=== PATIENT | female | born 1950 | race Asian ===

== ENCOUNTER 2023-07-01 10:54 | Emergency (ER) | payer OTHER ==
[~2023-07-01] VITALS: Ht 154.9 cm; Wt 45.3 kg
[2023-07-01] MEDS ORDERED: LABETALOL HCL 5 MG/ML 20 ML VIAL IVP PRN ×2 (11:00)
[2023-07-01] MEDS ORDERED: OXYGEN THERAPY IH SCH (11:00)
[2023-07-01 11:31] LABS: BASOPHILS % (AUTO) 0.3 % (0.0-2.0); EOSINOPHILS % (AUTO) 0.1 % (1.0-6.0); HEMATOCRIT 46.1 % (36-46); HEMOGLOBIN 15.6 g/dL (12.0-16.0); LYMPHOCYTES # (AUTO) 0.7 K/uL (1.0-4.8); LYMPHOCYTES % (AUTO) 7.4 % (22.0-44.0); MEAN CORPUSCULAR HEMOGLOBIN 32.3 pg (26.0-34.0); MEAN CORPUSCULAR HGB CONC 33.9 G/dL (31.0-37.0); MEAN CORPUSCULAR VOLUME 95 fL (80-100); MONOCYTES # (AUTO) 0.5 K/uL (0.1-1.0); MONOCYTES % (AUTO) 5.4 % (2.0-9.0); PLATELET COUNT (AUTO) 176 K/uL (150-450); RED BLOOD CELL COUNT(AUTO) 4.84 MIL/uL (4.00-5.20); RED CELL DISTRIBUTION WIDTH 14.2 % (11.5-14.5); WHITE BLOOD COUNT (AUTO) 9.2 K/uL (4.5-11.0)
[2023-07-01] MEDS ORDERED: ROCURONIUM BROMIDE 10 MG/ML 5 ML VIAL ONE (11:31)
[2023-07-01 11:36] LABS: NEUTROPHILS % (AUTO) 86.8 % (40.0-70.0)
[2023-07-01 11:42] VITALS: PULSE 66; RESP 20; O2SAT 99
[2023-07-01 11:44] VITALS: TEMP 97.9
[2023-07-01] MEDS ORDERED: ETOMIDATE 2 MG/ML 10 ML VIAL IVP ONE (12:00)
[2023-07-01 12:02] VITALS: O2SAT 98
[2023-07-01 12:05] LABS: CALCIUM, TOTAL 9.1 mg/dL (8.8-10.5); CREATININE 0.95 mg/dL (0.60-1.30); POTASSIUM 3.6 mmol/L (3.5-5.1)
[2023-07-01 12:10] LABS: INR 1.7 (0.9-1.1); PROTHROMBIN TIME 17.3 SEC (9.4-11.6)
[2023-07-01 12:12] VITALS: BP 101/74; PULSE 87; RESP 20
[2023-07-01 12:13] LABS: ALBUMIN 3.7 g/dL (3.4-5.0); CHOL/HDL RATIO 2.2 (3.9-5.7); DIGOXIN 0.82 ng/mL (0.90-2.00)
[2023-07-01 12:17] LABS: TROPONIN I-HIGH SENSITIVITY 601 ng/L (<51)
[2023-07-01 12:23] LABS: ABG BASE EXCESS 2.6 mmol/L (-2.0-3.0); ABG CARBOXYHEMOGLOBIN 1.5 % (0.0-1.5); ABG HCO3 27.6 mmol/L (22.0-26.0); ABG METHEMOGLOBIN 0.7 % (0.0-1.5); ABG OXYGEN CONTENT 23.4 mL/dL (15.0-23.0); ABG OXYGEN SATURATION 99.7 % (95.0-98.0); ABG OXYHEMOGLOBIN 97.5 % (94.0-100.0); ABG PCO2 31 mmHg (35-45); ABG PH 7.534 (7.35-7.450); ABG TOTAL HEMOGLOBIN 16.2 G/dL (12.0-18.0); PO2, ARTERIAL BG 463.6 mmHg (75.0-83.0); SOURCE, BLOOD GAS ARTERIAL; TEMPERATURE, FAHRENHEIT, BG 97.9 FAHREN (96.0-98.6)
[2023-07-01 12:24] LABS: ALLEN TEST, BLOOD GAS POS; O2 DEVICE,BLOOD GAS VENTILATOR (ROOM AIR); SITE, BLOOD GAS RT BRACHIAL
[2023-07-01 12:25] LABS: PEEP,BG 5 cm H2O; SPONTANEOUS VT, BG 386 ml; VT, ABG 375 ml
[2023-07-01] MEDS ORDERED: IOHEXOL 350 MG/ML 100 ML VIAL ONE (12:33)
[2023-07-01] MEDS ORDERED: SODIUM CHLORIDE 0.9% 100 ML ONE (12:33)
[2023-07-01 12:57] LABS: PH,URINE DRUG SCREEN 6.5 (5.0-8.0)
[2023-07-01 12:58] LABS: APPEARANCE,URINE CLEAR (CLEAR); BILIRUBIN,URINE NEGATIVE (NEGATIVE); COLOR,URINE YELLOW (YELLOW); GLUCOSE, URINE (UA) NEGATIVE (NEGATIVE); KETONES,URINE TRACE mg/dL (NEGATIVE); LEUKOCYTE ESTERASE ,URINE NEGATIVE (NEGATIVE); NITRATE,URINE NEGATIVE (NEGATIVE); OCCULT BLOOD,URINE NEGATIVE (NEGATIVE); PH,URINE 6.5 (5.0-8.0); PROTEIN,URINE 30-70 mg/dL (NEGATIVE); SPECIFIC GRAVITIY, URINE 1.021 (1.003-1.030); UROBILINOGEN,URINE <=1.0 mg/dL (<=1.0)
[2023-07-01 13:13] LABS: ALCOHOL, URINE DRUG SCREEN NEGATIVE (NEGATIVE); AMPHET/METH SCREEN,URINE NEGATIVE (NEGATIVE); BARBITURATE SCREEN, URINE NEGATIVE (NEGATIVE); BENZODIAZEPINES SCREEN,URINE NEGATIVE (NEGATIVE); CANNABINOID SCREEN,URINE NEGATIVE (NEGATIVE); COCAINE SCREEN,URINE NEGATIVE (NEGATIVE); METHADONE SCREEN, URINE NEGATIVE (NEGATIVE); OPIATE SCREEN,URINE NEGATIVE (NEGATIVE); PHENCYCLIDINE SCREEN,URINE NEGATIVE (NEGATIVE)
[2023-07-01 13:33] LABS: RBC,URINE None Seen /HPF (0-2)
[2023-07-01 13:34] LABS: BACTERIA,URINE None Seen /HPF (None Seen); SQUAMOUS EPITHELIAL CELL,UR Few /LPF (None Seen)
== END 2023-07-01 12:42 | disposition short-term general hospital (02) ==
LOC: EMS 10:55
DX: I63.9 Cerebral infarction, unspecified (principal)
CPT/HCPCS: 99291; 72125; 31500; 71045; 80061; 80053; 80162; 81001; 84484; 85025; 85610; 85730; 86850; 86900; 86901; 36415; 82805; 70496; 70498; 82948; 70450; 36600; 93005; 80307 ×2; J3490 ×2; Q9967; J7050; 94002